=== PATIENT | male | born 1975 | race Two or more races ===

== ENCOUNTER 2024-06-22 19:16 | Emergency (ER) | payer OTHER ==
[~2024-06-22] VITALS: Ht 180.3 cm; Wt 77.1 kg
[2024-06-22] MEDS ORDERED: ACETAMINOPHEN WITH CODEINE 1 UDTAB TABLET PO ONE (21:00)
[2024-06-22] MEDS ORDERED: TETANUS & DIPHTHERIA TOX,ADULT 0.5 ML VIAL IM ONE (21:45)
[2024-06-22] MEDS ORDERED: CEFAZOLIN SODIUM 1,000 MG VIAL IV ONE (21:45)
[2024-06-22] MEDS ORDERED: CEFTRIAXONE SODIUM 1,000 MG VIAL IM STA (22:28)
== END 2024-06-22 22:48 | disposition home or self-care (01) ==
LOC: ER 19:17
DX: S61.320A Laceration with foreign body of right index finger with damage to nail, initial encounter (principal); W26.0XXA Contact with knife, initial encounter; Y93.89 Activity, other specified; Y92.89 Other specified places as the place of occurrence of the external cause